=== PATIENT | male | born 1960 | race Caucasian/White ===

== ENCOUNTER 2016-09-04 14:17 | Emergency (ER) | payer OTHER ==
[~2016-09-04] VITALS: Wt 77.1 kg
[~2016-09-04 14:17] MED LIST: ADVAIR 250/501 EA INH; ALLOPURINOL100 MG; ASPIR LOW81 MG PO; ASPIRIN81 M2 PO; ATENOLOL25 MG; AUGMENTIN 875-875 MG PO; COREG3.125 MG; COREG6.25 MG PO; COZAAR25 M1 PO; COZAAR50 MG; DEXILANT60 M1 PO; FLOMAX0.4 MG PO; GLUCOPHAGE1000 MG; GLYBURIDE5 MG; HYDROCHLOROTH12.5 MG; JANUVIA25 MG PO; LOPID600 MG; MEVACOR20 MG; MORPHINE SULFAT15 M7 PO; MOTRIN800 MG PO; MS CONTIN15 MG PO; NASONEX0.05 MG/AC NS; NEURONTIN300 MG; NEXIUM40 MG; NITROSTAT; NORCO 5-325 TA1 EACH PO; OXYGEN; PERCOCET 325 MG1 TA2 PO; PLAVIX75 M1 PO; PLAVIX75 MG; PROAIR HFA0.09 MG/AC INH; REQUIP2 MG PO; SPIRIVA18 MCG INH; SPIRIVA18 MCG PO; THEO-DUR200 MG; TRAMADOL HCL50 MG PO; VENTOLIN 02.5 MG/3 M INH; VICODIN 5/500 505 MG
[2016-09-04 14:42] LABS: BASO % 0.3 % (0.0-1.0); EOS % 0.3 % (1.0-4.0); HEMATOCRIT 22.5 % (42.0-52.0); HEMOGLOBIN 7.3 g/dl (14.0-18.0); IG # 0.1 10*3/uL (0.0-0.1); LYMPH # 0.8 10*3/uL (1.3-4.4); LYMPH % 13.1 % (27.0-41.0); MEAN CORPUSCULAR HGB 29.2 pg (27.0-31.0); MEAN CORPUSCULAR HGB CONC 32.4 g/dl (33.0-37.0); MEAN PLATELET VOLUME 10.7 fl (9.6-12.3); MONO # 0.9 10*3/uL (0.1-1.0); MONO % 14.7 % (3.0-9.0); NEUT # 4.3 10*3/uL (2.3-7.9); NEUT % 70.8 % (47.0-73.0); PLATELET COUNT AUTOMATED 87 10*3/uL (130-400); RED CELL DISTRI WIDTH 14.6 % (0-14.5); WHITE BLOOD COUNT 6.1 10*3/uL (4.8-10.8)
[2016-09-04 14:50] LABS: PROTHROMBIN TIME 10.9 SECONDS (9.0-12.4)
[2016-09-04 14:55] LABS: BUN 13 mg/dl (7-24); CARBON DIOXIDE 24 mmol/L (21-32); CHLORIDE 99 mmol/L (98-107); EST GLOM FILT AFRICAN AMERICAN > 60 ml/min; GLUCOSE 227 mg/dL (65-99); SODIUM 135 mmol/L (136-145)
[2016-09-04 14:56] VITALS: BP 112/66
== END 2016-09-04 14:57 | disposition short-term general hospital (02) ==
LOC: ED 14:17
PROVIDERS: Student in an Organized Health Care Education/Training Program
DX: K91.841 Postprocedural hemorrhage of a digestive system organ or structure following other procedure (principal); J44.9 Chronic obstructive pulmonary disease, unspecified; I10 Essential (primary) hypertension; E78.00 Pure hypercholesterolemia, unspecified; I73.9 Peripheral vascular disease, unspecified; E11.65 Type 2 diabetes mellitus with hyperglycemia; Z79.899 Other long term (current) drug therapy; Z79.82 Long term (current) use of aspirin

== ENCOUNTER 2016-09-17 13:32 | Inpatient (IN) | payer OTHER ==
[~2016-09-17] VITALS: Ht 167.6 cm; Wt 81.0 kg
[2016-09-17] VITALS (13 sets, daily range): BP systolic 82–115; BP diastolic 40–62
--- NOTE | ~2016-09-17 | CON ---
[place], [place] REPORT OF CONSULTATION NAME: DEYSI GILLIS UNIT #: [id number] ROOM: [facility] DOCTOR: DENNISE OSRIA MD BIRTHDATE: [birth year] DOS: 09/18/2016 GASTROENDOSCOPIC CONSULTATION REPORT HISTORY OF PRESENT ILLNESS: The patient has presented with multiple medical issues among which has been blood in the stool, blood in ostomy site, leukocytosis of 12,000, H and H of 8 and 26 with platelet of 250. Comprehensive metabolic panel, electrolyte balanced, potassium 5.6 initially, alkaline phosphatase 467. CBC differential, drop in H and H to 7 and 24 identified. PAST MEDICAL HISTORY: COPD, history of colonic mass, bowel obstruction, colostomy, deep venous thrombosis, diabetes mellitus. PAST SURGICAL HISTORY: Colostomy, inferior vena cava filter, total toe amputation. SOCIAL HISTORY: Alcohol consumer. FAMILY HISTORY: Noncontributory. ALLERGIES: No known medications. MEDICATIONS: Medication list has been reviewed on aspirin and Plavix. REVIEW OF SYSTEMS: HEENT: Denies double vision, blurred vision. RESPIRATORY: Denies acute shortness of breath. CARDIOVASCULAR: Denies chest pain. DIGESTIVE SYSTEM: As identified above. No blood in the colostomy. PHYSICAL EXAMINATION: VITAL SIGNS: Stable. HEENT: Head normocephalic, nontraumatic. Mouth and buccal mucosa benign. NECK: Supple, no thyromegaly. CHEST: Symmetric anatomy, equal expansion. No wheeze, no rhonchi. HEART: Normal sinus rhythm, no gallop, no murmur. ABDOMEN: Soft. No hepato-organomegaly. Bowel sounds present. No pulsatile mass. EXTREMITIES: No cyanosis, no pedal edema. NEUROLOGIC: Alert, oriented to time, place, person. IMPRESSION: Gastrointestinal bleed, blood in colostomy on aspirin and Plavix. OTHER ADJUNCTIVE DIAGNOSES: As outlined in paragraph of past medical and surgical history. PLAN: We are going to consider EGD, colonoscopy and colostomy evaluation a colostomy. [place], [place] REPORT OF CONSULTATION NAME: DEYSI GILLIS UNIT #: [id number] ROOM: [facility] DOCTOR: DENNISE SORIA MD BIRTHDATE: [birth year] DENNISE SORIA MD CM:CONSTR:REPORT OF CONSULTATION 1407 09/19/16 0644 interface
--- NOTE | ~2016-09-17 | O ---
[place], [place] OPERATIVE NOTE NAME: DEYSI GILLIS UNIT #: [id number] ROOM: [facility] DOCTOR: ESTELLA ENCARNACION,DENNISE BIRTHDATE: [birth year] DOS: 09/18/2016 GASTROENDOSCOPIC REPORT PROCEDURE: Today's procedure part of investigation is ileoscopy. PREMEDICATION: Versed and Diprivan. SCOPE: Olympus folding ____ gastroscope Q10 video. REPORT: After putting the patient in the left lateral position. Scope was introduced into the ostomy in the right lower quadrant and advanced to approximately 80 cm. No acute pathology seen. No bleeding, ostomy appears to be viable. Patient extubated, tolerated procedure well. IMPRESSION: Normal ileoscopy. PLAN AND DISCUSSION: We are going to withhold aspirin and Plavix for 3 more days. We are going to transfuse for H and H of about 10 and 30 and we are going to address esophageal moniliasis with Diflucan therapy. Thank you very much indeed. DENNISE SORIA MD CM:OPRECORD:OPERATIVE NOTE 1433 1647 DENNISE SORIA MD 09/18/16 1648 interface
--- NOTE | ~2016-09-17 | O ---
[place], [place] OPERATIVE NOTE NAME: DEYSI GILLIS UNIT #: [id number] ROOM: [facility] DOCTOR: ESTELLA ENCARNACION,DENNISE BIRTHDATE: [birth year] DOS: 09/18/2016 The patient has presented with chief complaint of GI bleed, drop in H and H, undergoing investigation. INDICATIONS: The patient has been on aspirin and Plavix. PROCEDURE: Today's procedure part of investigation is panendoscopy plus ileoscopy. Plus brush for fungal study of the esophagus. PREMEDICATION: Versed and Diprivan. SCOPE: Olympus forward-viewing gastroscope Q10 video. REPORT: After putting the patient in the left lateral position and after application of lubricant to the scope, the scope was introduced; thereafter, under direct visualization, advanced through the length of esophagus without difficulty. Severe esophageal moniliasis was identified. Padroni for fungal study obtained. Gastric pouch was entered. Gastritis was seen. Antral biopsy obtained. Duodenal bulb, second and third part within normal limits. The patient extubated, tolerated the procedure well. IMPRESSION: Severe esophageal moniliasis, gastritis, status post biopsy. PLAN AND DISCUSSION: We are going to treat this patient with Diflucan 100 mg every day. On the other hand we are going to proceed with ileoscopy. DENNISE SORIA MD CM:OPRECORD:OPERATIVE NOTE 1433 1645 DENNISE SORIA MD 09/18/16 1646 interface
--- NOTE | ~2016-09-17 | CON ---
[place], [place] REPORT OF CONSULTATION NAME: DEYSI GILLIS UNIT #: [id number] ROOM: [facility] DOCTOR: ANDREA WHEELER MD BIRTHDATE: [birth year] DOS: 09/18/2016 REPORT TO THE APPLICATIONS TESTER HISTORY OF PRESENT ILLNESS: The patient is a pleasant 56-year-old [place] gentleman with a history of metastatic colon cancer as well as a ____ complaining of ____ to the ileostomy bag. He went to his PCP's office when he noticed and was seen by him, asked to come to the Emergency Department. He had this episode a couple of days back, which went away and he noticed again one hour ago and thus admitted to the ER through the ER into the hospital. Denies any shortness of breath, fever, chills, etc. He was recently shifted to [facility] on 09/04/2016 because of vascular hemorrhage from the varicose vein that was repaired. PAST MEDICAL HISTORY: Significant for metastatic colon cancer, undergoing chemotherapy, history of abdominal wall dehiscence, resolved acute intestinal obstruction. ____ sigmoid colon with metastatic disease to the liver. History of bleeding from varicose veins status post suturing, COPD, essential hypertension, gout, hematuria, which resolved, history of DVTs, pulmonary embolisms, hypercholesterolemia, leukocytosis, pneumonia due to H influenza, history of peripheral vascular disease. PAST SURGICAL HISTORY: Inferior vena cava filter placement, history of toe surgery, total toe amputation, history of colostomy. SOCIAL HISTORY: Denies any alcohol or drug abuse. FAMILY HISTORY: Father age ____ cancer. Mother age 77 of lung cancer. ALLERGIES: No allergies. MEDICATIONS: Albuterol, allopurinol, aspirin, carvedilol, Plavix, ferrous sulfate, Advair, gabapentin, gemfibrozil, ____, potassium, lovastatin, Protonix, Requip, Januvia, Spiriva, Ultram. REVIEW OF SYSTEMS: CONSTITUTIONAL: No chills. No fatigue. No fever. No loss of appetite. No night sweats. No weakness. No weight loss. HEENT: No trouble swallowing. No loss of smell. No loss of hearing. No double vision. No pain. No discharge. ENT AND RESPIRATORY: No wheeze. No sore throat. No change in voice. No hearing loss. No nose bleed. No cough. No trouble breathing through nose. No shortness of breath. No coughing up blood. No epistaxis. CARDIOVASCULAR: No chest pain. No dizziness. No irregular heartbeat. No leg edema. No pain in legs while walking. No palpitations. No shortness of breath. DERMATOLOGIC: No acne. No hives. No laceration. No mole. No rash. ENDOCRINE: No cold intolerance. No diabetes. No fatigue. No hot flashes. No polydipsia. No polyuria. No urinating frequently. No weight loss. [place], [place] REPORT OF CONSULTATION NAME: DEYSI GILLIS UNIT #: [id number] ROOM: [facility] DOCTOR: ANDREA WHEELER MD BIRTHDATE: [birth year] HEMATOLOGIC AND LYMPH: No fatigue. No easy bruising. GASTROENTEROLOGIC: No change in bowel habits. No indigestion. No frequent bloating. No vomiting blood. No abdominal cramping. No nausea. No heartburn. No vomiting. No abdominal pain. No dysphagia. No diarrhea. No constipation. No blood in stool. Has been having ____ bleeding through the stoma. MALE REPRODUCTIVE: No testicular pain. No difficulty with erection. No diminished sexual drive. No penile discharge. MUSCULOSKELETAL: No back pain. No muscle pain or weakness. No neck pain. No tingling/numbness. No swelling/bruising. No osteoporosis treatment. OPHTHALMOLOGIC: No double vision. No diminished vision. No loss of vision. UROLOGIC: No dysuria. No frequent nighttime urination. No pain with urination. No difficulty urinating. No blood in urine. No frequent urination. No urinary incontinence. NEUROLOGIC: No loss of sensation in specific body area. No vertigo. No burning pain in feet. No trouble with balance. No trouble with coordination. No loss of consciousness. No loss of feeling/power. No confusion. No headache. No tingling/numbness. PSYCHOLOGIC: No tinnitus. No headaches. No shortness of breath. No weight decrease. No nausea. No vomiting. No abdominal discomfort. No constipation. No diarrhea. No depression. No anxiety. PHYSICAL EXAMINATION: GENERAL: Pleasant gentleman in no apparent distress, ____ stable, afebrile. HEENT: Oral mucosa appears intact. The external ears are normal in appearance. Nares are patent without lesions, exudates, erythema, or inflammation. Tongue is symmetrical. Uvula is midline. NECK AND THYROID: Neck supple without palpable masses. Trachea is midline. No thyromegaly. No carotid bruit or JVD. BREASTS: Normal. Nipples unremarkable. No drainage. No lumps felt on either side. HEART: Normal S1, S2, without significant murmur, rub, or gallop. LUNGS: Clear to auscultation and percussion with good air entry bilaterally. The patient is breathing easily without the use of accessory muscles. Diaphragmatic excursions are intact. ABDOMEN: No costovertebral angle tenderness. Soft. No organomegaly or masses. Nontender. No hernias present. Liver and spleen are not palpable. ____ black stools. LYMPHATIC: No adenopathy noted in the cervical, supraclavicular, axillary, or inguinal regions. NEUROLOGIC: Nonfocal. Oriented to person, place, and time. MENTAL STATUS: Appropriate for mood and affect. PERIPHERAL PULSES: No varicosities. Femoral and pedal pulses are palpable. EXTREMITIES: Without cyanosis, clubbing, or edema. No gross anomalies. LABORATORY DATA: White count of 10.4, hemoglobin 8.8, hematocrit 26.6, platelet count of 132,000. ASSESSMENT: 1. Bleeding from the ileostomy bag. 2. Anemia of neoplastic disorder. [place], [place] REPORT OF CONSULTATION NAME: DEYSI GILLIS UNIT #: [id number] ROOM: [facility] DOCTOR: ANDREA WHEELER MD BIRTHDATE: [birth year] 3. Metastatic colon cancer. PLAN: The patient's bleeding has decreased and Dr. Hall is going to do a colonoscopy depending on further intervention. In the meantime, he got 2 units of packed RBC. We will keep a close watch at this time. I had a detailed discussion with the patient ____ seemed to understand. Ample time was given to the patient to ask me questions. We will follow. Chemo on hold. Thanks for consulting and letting us participate in the care of this interesting patient. ANDREA WHEELER MD CM:CONSTR:REPORT OF CONSULTATION 0828 09/19/16 0206 interface
[2016-09-17 14:30] LABS: BASO % 0.1 % (0.0-1.0); EOS % 0.1 % (1.0-4.0); HEMOGLOBIN 7.6 g/dl (14.0-18.0); IG # 0.1 10*3/uL (0.0-0.1); LYMPH # 1.8 10*3/uL (1.3-4.4); LYMPH % 13.3 % (27.0-41.0); MEAN CELL VOLUME 90.2 fl (80.0-94.0); MEAN CORPUSCULAR HGB 28.6 pg (27.0-31.0); MEAN CORPUSCULAR HGB CONC 31.7 g/dl (33.0-37.0); MEAN PLATELET VOLUME 11.3 fl (9.6-12.3); MONO # 0.3 10*3/uL (0.1-1.0); MONO % 2.4 % (3.0-9.0); NEUT # 11.4 10*3/uL (2.3-7.9); NEUT % 83.7 % (47.0-73.0); PLATELET COUNT AUTOMATED 207 10*3/uL (130-400); RED BLOOD COUNT 2.66 10*6/uL (4.50-5.90); RED CELL DISTRI WIDTH 15.1 % (0-14.5); WHITE BLOOD COUNT 13.6 10*3/uL (4.8-10.8)
[2016-09-17 14:47] LABS: ALBUMIN 2.4 gm/dl (3.1-4.5); BILIRUBIN, TOTAL 0.5 mg/dl (0.2-1.0); BUN 24 mg/dl (7-24); CARBON DIOXIDE 26 mmol/L (21-32); CHLORIDE 102 mmol/L (98-107); EST GLOM FILT AFRICAN AMERICAN > 60 ml/min; GLUCOSE 404 mg/dL (65-99); SGOT/AST 27 IU/L (3-35); SGPT/ALT 31 U/L (12-78); SODIUM 132 mmol/L (136-145); TOTAL PROTEIN 7.3 gm/dL (6.4-8.2)
[2016-09-17 14:49] LABS: ALKALINE PHOSPHATASE 363 U/L (45-117)
[2016-09-17 14:52] LABS: POTASSIUM 6.3 mmol/L (3.5-5.1); TROPONIN I 0.084 ng/ml (<0.045)
[2016-09-17] MEDS ORDERED: COREG3.125 MG PO (19:43)
[2016-09-17] MEDS ORDERED: CENTRUM SILVER1 EAC4 PO (19:45)
[2016-09-17] MEDS ORDERED: TAMSULOSIN HCL0.4 MG PO (19:48)
[2016-09-17] MEDS ORDERED: NEURONTIN300 MG PO (19:49)
[2016-09-17] MEDS ORDERED: IRON325 M2 PO (19:51)
[2016-09-17] MEDS ORDERED: ULTRAM50 MG PO (20:05)
[2016-09-17] MEDS ORDERED: Amaryl2 MG PO (20:07)
[2016-09-17] MEDS ORDERED: PROTONIX40 MG PO (20:08)
[2016-09-18] VITALS (9 sets, daily range): BP systolic 92–125; BP diastolic 31–67
[2016-09-18 01:49] LABS: BASO % 0.1 % (0.0-1.0); EOS % 0.2 % (1.0-4.0); HEMATOCRIT 26.2 % (42.0-52.0); HEMOGLOBIN 8.6 g/dl (14.0-18.0); LYMPH % 19.4 % (27.0-41.0); MEAN CELL VOLUME 87.3 fl (80.0-94.0); MEAN CORPUSCULAR HGB 28.7 pg (27.0-31.0); MEAN CORPUSCULAR HGB CONC 32.8 g/dl (33.0-37.0); MEAN PLATELET VOLUME 11.4 fl (9.6-12.3); MONO # 0.3 10*3/uL (0.1-1.0); MONO % 2.5 % (3.0-9.0); NEUT % 77.5 % (47.0-73.0); PLATELET COUNT AUTOMATED 146 10*3/uL (130-400); RED CELL DISTRI WIDTH 15.2 % (0-14.5); WHITE BLOOD COUNT 10.4 10*3/uL (4.8-10.8)
[2016-09-18 02:02] LABS: BUN 22 mg/dl (7-24); CARBON DIOXIDE 26 mmol/L (21-32); CHLORIDE 107 mmol/L (98-107); EST GLOM FILT AFRICAN AMERICAN > 60 ml/min; GLUCOSE 157 mg/dL (65-99); SODIUM 141 mmol/L (136-145)
[2016-09-18 02:04] LABS: POTASSIUM 4.9 mmol/L (3.5-5.1)
[2016-09-18 02:06] LABS: CKMB 0.6 ng/ml (0.5-3.6)
[2016-09-18 02:07] LABS: TROPONIN I 0.058 ng/ml (<0.045)
[2016-09-18 06:24] LABS: BASO % 0.1 % (0.0-1.0); EOS % 0.2 % (1.0-4.0); HEMATOCRIT 26.6 % (42.0-52.0); HEMOGLOBIN 8.8 g/dl (14.0-18.0); IG # 0.1 10*3/uL (0.0-0.1); LYMPH # 2.1 10*3/uL (1.3-4.4); LYMPH % 20.1 % (27.0-41.0); MEAN CELL VOLUME 87.8 fl (80.0-94.0); MEAN CORPUSCULAR HGB CONC 33.1 g/dl (33.0-37.0); MEAN PLATELET VOLUME 10.8 fl (9.6-12.3); MONO # 0.3 10*3/uL (0.1-1.0); MONO % 2.9 % (3.0-9.0); NEUT # 7.9 10*3/uL (2.3-7.9); NEUT % 76.1 % (47.0-73.0); PLATELET COUNT AUTOMATED 132 10*3/uL (130-400); RED BLOOD COUNT 3.03 10*6/uL (4.50-5.90); RED CELL DISTRI WIDTH 15.3 % (0-14.5); WHITE BLOOD COUNT 10.4 10*3/uL (4.8-10.8)
[2016-09-18 06:40] LABS: CPK 64 U/L (39-308)
[2016-09-18 06:42] LABS: CKMB < 0.5 ng/ml (0.5-3.6)
[2016-09-18 06:43] LABS: TROPONIN I 0.048 ng/ml (<0.045)
[2016-09-18 06:44] LABS: HEMOGLOBIN A1c 7.4 % (4.8-5.6)
[2016-09-18 06:57] LABS: BUN 20 mg/dl (7-24); CARBON DIOXIDE 26 mmol/L (21-32); CHLORIDE 107 mmol/L (98-107); GLUCOSE 168 mg/dL (65-99); MAGNESIUM 1.3 mg/dL (1.5-2.1); POTASSIUM 5.3 mmol/L (3.5-5.1); SODIUM 138 mmol/L (136-145)
[2016-09-18 07:02] LABS: PROTHROMBIN TIME 10.6 SECONDS (9.0-12.4)
[2016-09-18 07:08] LABS: ALKALINE PHOSPHATASE 282 U/L (45-117); BILIRUBIN, TOTAL 0.6 mg/dl (0.2-1.0); CHOLESTEROL 120 mg/dL (<200); EST GLOM FILT AFRICAN AMERICAN > 60 ml/min; FREE T4 0.99 ng/dl (0.76-1.46); HDL CHOLESTEROL 41 mg/dl (40-60); LDL CHOLESTEROL 54 mg/dL (9-159); PHOSPHOROUS 2.6 mg/dL (2.5-4.9); SGOT/AST 17 IU/L (3-35); SGPT/ALT 22 U/L (12-78); TRIGLYCERIDES 127 mg/dl (<150); VLDL CHOLESTEROL 25 mg/dL (6-40)
[2016-09-18 07:18] LABS: VITAMIN D, 25-HYDROXY 26.7 ng/mL (30-100)
[2016-09-18 07:26] LABS: FOLIC ACID > 24.00 ng/mL (>5.38)
[2016-09-18 11:55] LABS: CPK 61 U/L (39-308); TROPONIN I 0.039 ng/ml (<0.045)
[2016-09-18 11:59] LABS: CKMB < 0.5 ng/ml (0.5-3.6)
[2016-09-19] VITALS (12 sets, daily range): BP systolic 96–138; BP diastolic 49–88
[2016-09-19 05:56] LABS: EOS # 0.1 10*3/uL (0.0-0.4); EOS % 0.9 % (1.0-4.0); HEMATOCRIT 24.5 % (42.0-52.0); HEMOGLOBIN 7.7 g/dl (14.0-18.0); IG # 0.1 10*3/uL (0.0-0.1); LYMPH # 1.5 10*3/uL (1.3-4.4); LYMPH % 17.4 % (27.0-41.0); MEAN CELL VOLUME 90.4 fl (80.0-94.0); MEAN CORPUSCULAR HGB 28.4 pg (27.0-31.0); MEAN CORPUSCULAR HGB CONC 31.4 g/dl (33.0-37.0); MEAN PLATELET VOLUME 11.7 fl (9.6-12.3); MONO # 0.4 10*3/uL (0.1-1.0); MONO % 4.5 % (3.0-9.0); NEUT # 6.7 10*3/uL (2.3-7.9); NEUT % 76.6 % (47.0-73.0); PLATELET COUNT AUTOMATED 107 10*3/uL (130-400); RED BLOOD COUNT 2.71 10*6/uL (4.50-5.90); RED CELL DISTRI WIDTH 15.2 % (0-14.5); WHITE BLOOD COUNT 8.7 10*3/uL (4.8-10.8)
[2016-09-19 06:02] LABS: BUN 17 mg/dl (7-24); CARBON DIOXIDE 27 mmol/L (21-32); CHLORIDE 106 mmol/L (98-107); EST GLOM FILT AFRICAN AMERICAN > 60 ml/min; GLUCOSE 328 mg/dL (65-99); SODIUM 142 mmol/L (136-145)
[2016-09-19 06:32] LABS: POTASSIUM 4.3 mmol/L (3.5-5.1)
[2016-09-20] VITALS: BP 105/50
[2016-09-20 07:05] LABS: HEMATOCRIT 26.4 % (42.0-52.0); HEMOGLOBIN 8.7 g/dl (14.0-18.0)
[2016-09-20 07:33] LABS: CARBON DIOXIDE 24 mmol/L (21-32); CHLORIDE 109 mmol/L (98-107); EST GLOM FILT AFRICAN AMERICAN > 60 ml/min; GLUCOSE 197 mg/dL (65-99); POTASSIUM 4.2 mmol/L (3.5-5.1); SODIUM 141 mmol/L (136-145)
[2016-09-20 07:35] LABS: BUN 7 mg/dl (7-24)
[2016-09-20 08:00] VITALS: BP 123/68
[2016-09-20 12:00] VITALS: BP 112/57
[2016-09-20] MEDS ORDERED: FLUCONAZOLE100 MG PO (12:55)
[2016-09-20] MEDS ORDERED: BACTRIM 400 MG-1 TAB PO (13:09)
== END 2016-09-20 13:58 | disposition home or self-care (01) | DRG 377 ==
LOC: ED 13:32 → ICCU 15:27 → EDHOLD 15:27 → 5E 16:01 → ICCU 18:28 → 4E 09-19 17:44
PROVIDERS: Emergency Medicine; Family Medicine; Internal Medicine; Internal Medicine Gastroenterology
PROC: 30233N1 Transfusion of Nonautologous Red Blood Cells into Peripheral Vein, Percutaneous Approach (ICD-10-PCS; principal; 2016-09-17)
PROC: 0DJD8ZZ Inspection of Lower Intestinal Tract, Via Natural or Artificial Opening Endoscopic (ICD-10-PCS; 2016-09-18)
PROC: 0DB78ZX Excision of Stomach, Pylorus, Via Natural or Artificial Opening Endoscopic, Diagnostic (ICD-10-PCS; 2016-09-18)
DX: K92.2 Gastrointestinal hemorrhage, unspecified (principal); J96.00 Acute respiratory failure, unspecified whether with hypoxia or hypercapnia; E43 Unspecified severe protein-calorie malnutrition; B37.81 Candidal esophagitis; Z93.0 Tracheostomy status; C18.9 Malignant neoplasm of colon, unspecified; R65.10 Systemic inflammatory response syndrome (SIRS) of non-infectious origin without acute organ dysfunction; K94.11 Enterostomy hemorrhage; K29.71 Gastritis, unspecified, with bleeding; D69.6 Thrombocytopenia, unspecified; E11.65 Type 2 diabetes mellitus with hyperglycemia; E87.5 Hyperkalemia; J44.9 Chronic obstructive pulmonary disease, unspecified; D63.0 Anemia in neoplastic disease; I10 Essential (primary) hypertension; M1A.9XX0 Chronic gout, unspecified, without tophus (tophi); E78.00 Pure hypercholesterolemia, unspecified; E83.41 Hypermagnesemia; E55.9 Vitamin D deficiency, unspecified; F17.200 Nicotine dependence, unspecified, uncomplicated; E11.51 Type 2 diabetes mellitus with diabetic peripheral angiopathy without gangrene; Z80.8 Family history of malignant neoplasm of other organs or systems; Z80.1 Family history of malignant neoplasm of trachea, bronchus and lung; Z86.718 Personal history of other venous thrombosis and embolism; Z79.51 Long term (current) use of inhaled steroids; Z79.82 Long term (current) use of aspirin; Z79.899 Other long term (current) drug therapy; Z68.28 Body mass index [BMI] 28.0-28.9, adult; I95.9 Hypotension, unspecified

== ENCOUNTER 2016-10-02 13:16 | Emergency (ER) | payer OTHER ==
[~2016-10-02] VITALS: Wt 72.6 kg
--- NOTE | ~2016-10-02 | EKG ---
[place], [place] ELECTROCARDIOGRAM REPORT NAME: DEYSI GILILS UNIT #: [id number] ROOM: DOCTOR: JAVAN GUERRERO MD BIRTHDATE: [birth year] DOS: 10/02/2016 TIME: 1411 HOURS. Normal sinus rhythm at 93 beats per minute. A short AL interval. Low voltage T-waves in lateral leads. No previous tracing is available for comparison. JAVAN GUERRERO MD CM:EKGRPT:ELECTROCARDIOGRAM REPORT 1453 1651 JAVAN GURERERO MD
[~2016-10-02 13:16] MED LIST changes: +Amaryl2 MG PO; +BACTRIM 400 MG-1 TAB PO; +CENTRUM SILVER1 EAC4 PO; +COREG3.125 MG PO; +FLUCONAZOLE100 MG PO; +IRON325 M2 PO; +NEURONTIN300 MG PO; +PROTONIX40 MG PO; +TAMSULOSIN HCL0.4 MG PO; +ULTRAM50 MG PO
[2016-10-02 13:27] VITALS: BP 114/61
[2016-10-02 14:20] LABS: BASO % 0.2 % (0.0-1.0); EOS # 0.1 10*3/uL (0.0-0.4); EOS % 1.7 % (1.0-4.0); HEMOGLOBIN 8.7 g/dl (14.0-18.0); LYMPH # 1.2 10*3/uL (1.3-4.4); LYMPH % 24.8 % (27.0-41.0); MEAN CELL VOLUME 86.3 fl (80.0-94.0); MEAN CORPUSCULAR HGB 27.8 pg (27.0-31.0); MEAN CORPUSCULAR HGB CONC 32.2 g/dl (33.0-37.0); MEAN PLATELET VOLUME 11.9 fl (9.6-12.3); MONO # 0.5 10*3/uL (0.1-1.0); MONO % 10.4 % (3.0-9.0); NEUT # 2.9 10*3/uL (2.3-7.9); NEUT % 62.3 % (47.0-73.0); PLATELET COUNT AUTOMATED 118 10*3/uL (130-400); RED BLOOD COUNT 3.13 10*6/uL (4.50-5.90); RED CELL DISTRI WIDTH 17.5 % (0-14.5); WHITE BLOOD COUNT 4.7 10*3/uL (4.8-10.8)
[2016-10-02 14:31] LABS: PROTHROMBIN TIME 10.1 SECONDS (9.0-12.4)
[2016-10-02 14:35] LABS: ALBUMIN 2.1 gm/dl (3.1-4.5); ALKALINE PHOSPHATASE 407 U/L (45-117); BILIRUBIN, TOTAL 0.7 mg/dl (0.2-1.0); BUN 19 mg/dl (7-24); CARBON DIOXIDE 27 mmol/L (21-32); CHLORIDE 99 mmol/L (98-107); CPK 165 U/L (39-308); EST GLOM FILT AFRICAN AMERICAN > 60 ml/min; GLUCOSE 349 mg/dL (65-99); MAGNESIUM 1.8 mg/dL (1.5-2.1); POTASSIUM 4.4 mmol/L (3.5-5.1); SGOT/AST 23 IU/L (3-35); SGPT/ALT 26 U/L (12-78); SODIUM 134 mmol/L (136-145); TOTAL PROTEIN 6.6 gm/dL (6.4-8.2)
[2016-10-02 14:44] LABS: CKMB < 0.5 ng/ml (0.5-3.6); TROPONIN I < 0.015 ng/ml (<0.045)
== END 2016-10-02 14:56 | disposition left against medical advice (07) ==
LOC: ED 13:16
PROVIDERS: Emergency Medicine
DX: K92.2 Gastrointestinal hemorrhage, unspecified (principal); F17.200 Nicotine dependence, unspecified, uncomplicated; Z79.82 Long term (current) use of aspirin; Z79.899 Other long term (current) drug therapy; I10 Essential (primary) hypertension; J44.9 Chronic obstructive pulmonary disease, unspecified; E78.00 Pure hypercholesterolemia, unspecified; Z79.01 Long term (current) use of anticoagulants; Z93.3 Colostomy status

== ENCOUNTER 2017-03-10 09:20 | Inpatient (IN) | payer OTHER ==
[2017-03-10] VITALS (8 sets, daily range): BP systolic 85–115; BP diastolic 36–60
[~2017-03-10] VITALS: Ht 167.6 cm; Wt 61.2 kg
--- NOTE | ~2017-03-10 | CON ---
[place], [place] REPORT OF CONSULTATION NAME: [facility]YSI GILLIS [id number] UNIT #: [id number] ROOM: 506 DOCTOR: ANDREA WHEELER MD BIRTHDATE: [birth year] DOS: 03/11/2017 HISTORY OF PRESENT ILLNESS: The patient is a pleasant 56-year-old gentleman with a history of metastatic colon cancer diagnosed about 18 months ago, has been pretty well as far as his stage IV cancer is concerned. He finished his chemotherapy on Wednesday. He presented to the Emergency Department since he had not been feeling good and has had frequent falls associated with some nausea and vomiting. He was brought in by private vehicle by his . He was found to be hypotensive as well as had been feeling dizzy and falling over multiple times and consulted for further evaluation of metastatic disease. He also was noted to have pneumonia. PAST MEDICAL HISTORY: Significant for metastatic stage IV colon cancer, diagnosed about 18 months ago; history of acute intestinal obstruction, underwent surgery; acute respiratory failure; COPD; esophageal moniliasis; essential hypertension; history of DV thrombosis; pulmonary embolism; hypercholesterolemia; hypercalcemia; hyperkalemia; hypomagnesemia; peripheral vascular disease. SOCIAL HISTORY: Smokes half packet per day for 40 years. Denies any drinking. PAST SURGICAL HISTORY: Colostomy, history of toe surgery with prominent toe amputation, history of tracheostomy, peripheral vascular angioplasty as well as history of inferior vena filter placement. FAMILY HISTORY: Father at 76 with throat cancer. Mother at 77 of lung cancer. ALLERGIES: No allergies. MEDICATIONS: Albuterol, allopurinol, aspirin, baclofen, carvedilol, Celebrex, Plavix, ____, Advair, Lasix, Neurontin, Lopid, Amaryl, levothyroxine, Cozaar, Mevacor, metformin, metoclopramide, Mucinex, Centrum Silver, Procardia, Zofran, Protonix, Zantac, Requip, Januvia, Aubagio, Spiriva, Ultram, Effexor. RADIOLOGY: CT of the head without contrast showed no evidence of acute territorial infarction, acute intracranial hemorrhage. There is a focal hypodensity in the left posterior occipital parietal region extending into the cortex, possibly representing a focal cortical infarct, but given the history of malignancy, metastatic focus cannot be excluded, correlate clinically with enhanced MRI. CT of the cervical spine showed no acute cervical spine fracture, minimal degenerative disease. CT scan of the abdomen and pelvis showed no acute findings except for the liver mets. REVIEW OF SYSTEMS CONSTITUTIONAL: No chills. No fatigue. No fever. No loss of appetite. No night sweats. No weakness. No weight loss. HEENT: No trouble swallowing. No loss of smell. No loss of hearing. No double vision. No pain. No discharge. ENT AND RESPIRATORY: No wheeze. No sore throat. No change in voice. No [place], [place] REPORT OF CONSULTATION NAME: DEYSI GILLIS UNIT #: [id number] ROOM: 506 DOCTOR: ANDREA WHEELER MD BIRTHDATE: 56 hearing loss. No nose bleed. No cough. No trouble breathing through nose. No shortness of breath. No coughing up blood. No epistaxis. CARDIOVASCULAR: No chest pain. No dizziness. No irregular heartbeat. No leg edema. No pain in legs while walking. No palpitations. No shortness of breath. DERMATOLOGIC: No acne. No hives. No laceration. No mole. No rash. ENDOCRINE: No cold intolerance. No diabetes. No fatigue. No hot flashes. No polydipsia. No polyuria. No urinating frequently. No weight loss. HEMATOLOGIC AND LYMPH: No fatigue. No easy bruising. GASTROENTEROLOGIC: No change in bowel habits. No indigestion. No frequent bloating. No vomiting blood. No abdominal cramping. No nausea. No heartburn. No vomiting. No abdominal pain. No dysphagia. No diarrhea. No constipation. No blood in stool. MALE REPRODUCTIVE: No testicular pain. No difficulty with erection. No diminished sexual drive. No penile discharge. MUSCULOSKELETAL: No back pain. No muscle pain or weakness. No neck pain. No tingling/numbness. No swelling/bruising. No osteoporosis treatment. OPHTHALMOLOGIC: No double vision. No diminished vision. No loss of vision. UROLOGIC: No dysuria. No frequent nighttime urination. No pain with urination. No difficulty urinating. No blood in urine. No frequent urination. No urinary incontinence. NEUROLOGIC: No loss of sensation in specific body area. No vertigo. No burning pain in feet. No trouble with balance. No trouble with coordination. No loss of consciousness. No loss of feeling/power. No confusion. No headache. No tingling/numbness. PSYCHOLOGIC: No tinnitus. No headaches. No shortness of breath. No weight decrease. No nausea. No vomiting. No abdominal discomfort. No constipation. No diarrhea. No depression. No anxiety. PHYSICAL EXAMINATION: GENERAL: General appearance: Pleasant patient, no apparent distress. VITAL SIGNS: Stable, afebrile. HEENT: Oral mucosa appears intact. The external ears are normal in appearance. Nares are patent without lesions, exudates, erythema, or inflammation. Tongue is symmetrical. Uvula is midline. NECK AND THYROID: Neck supple without palpable masses. Trachea is midline. No thyromegaly. No carotid bruit or JVD. BREASTS: Normal. Nipples unremarkable. No drainage. No lumps felt on either side. HEART: Normal S1, S2, without significant murmur, rub, or gallop. LUNGS: Clear to auscultation and percussion with good air entry bilaterally. The patient is breathing easily without the use of accessory muscles. Diaphragmatic excursions are intact. ABDOMEN: Colostomy in place, wound healed. LYMPHATIC: No adenopathy noted in the cervical, supraclavicular, axillary, or inguinal regions. NEUROLOGIC: Nonfocal. Oriented to person, place, and time. MENTAL STATUS: Appropriate for mood and affect. PERIPHERAL PULSES: No varicosities. Femoral and pedal pulses are palpable. EXTREMITIES: Without cyanosis, clubbing, or edema. No gross anomalies. [place], [place] REPORT OF CONSULTATION NAME: DEYSI GILLIS UNIT #: [id number] ROOM: [facility] DOCTOR: ANDREA WHEELER MD BIRTHDATE: [birth year] LABORATORY DATA: Sodium 130, potassium 5.2, chloride 92, bicarbonate 27, BUN of 30, EGFR is more than 60. White count of 6.2, hemoglobin 10.2, hematocrit 31.6, platelet count of 236. Chest x-ray showed minimal patchy interstitial infiltrate, right middle lobe. Questionable early evolving pneumonia. ASSESSMENT: 1. Possible pneumonia. 2. Metastatic stage IV colon cancer, undergoing chemotherapy. 3. Anemia of neoplastic disorder syncope. 4. Syncope. 5. Questionable lesion in the left posterior occipital parietal region extending into the cortex, probably representing focal cortical infarct. Metastatic focus is not definitely excluded. PLAN: I had detailed discussion with the patient. We will continue broad spectrum antibiotics. We will wait for the blood cultures to come back. He may need an MRI of the head if his dizziness does not improve. Follow for now. Review old records. Depending on the above, further intervention and discussion will follow. Thanks for consulting and letting me participate in the care of this interesting patient. ANDREA WHEELER MD CM:CONSTR:REPORT OF CONSULTATION 0907 03/11/17 2030 interface
[2017-03-10 10:02] LABS: BASO % 0.5 % (0.0-1.0); HEMATOCRIT 31.6 % (42.0-52.0); HEMOGLOBIN 10.2 g/dl (14.0-18.0); LYMPH # 1.5 10*3/uL (1.3-4.4); LYMPH % 23.3 % (27.0-41.0); MEAN CORPUSCULAR HGB 28.4 pg (27.0-31.0); MEAN CORPUSCULAR HGB CONC 32.3 g/dl (33.0-37.0); MEAN PLATELET VOLUME 11.8 fl (9.6-12.3); MONO # 0.3 10*3/uL (0.1-1.0); MONO % 4.2 % (3.0-9.0); NEUT # 4.5 10*3/uL (2.3-7.9); NEUT % 71.5 % (47.0-73.0); PLATELET COUNT AUTOMATED 236 10*3/uL (130-400); RED BLOOD COUNT 3.59 10*6/uL (4.50-5.90); RED CELL DISTRI WIDTH 15.9 % (0-14.5); WHITE BLOOD COUNT 6.2 10*3/uL (4.8-10.8)
[2017-03-10 10:11] LABS: ACT PARTIAL THROMBO TIME 30.9 SECONDS (20.8-31.5); INTERNATIONAL NORM RATIO 1.2 (2.0-3.5)
[2017-03-10 10:20] LABS: ALBUMIN 2.2 gm/dl (3.1-4.5); ALKALINE PHOSPHATASE 480 U/L (45-117); CHLORIDE 92 mmol/L (98-107); CREATININE 1.09 mg/dL (0.70-1.30); LIPASE 114 U/L (73-393); POTASSIUM 5.2 mmol/L (3.5-5.1); SGOT/AST 59 IU/L (3-35); SGPT/ALT 36 U/L (12-78); SODIUM 130 mmol/L (136-145); TOTAL PROTEIN 8.3 gm/dL (6.4-8.2)
[2017-03-10 10:22] LABS: BUN 30 mg/dl (7-24); TROPONIN I < 0.015 ng/ml (<0.045)
[2017-03-10 10:49] LABS: BILIRUBIN NEGATIVE (NEGATIVE); BLOOD NEGATIVE (NEGATIVE); CLARITY CLEAR (CLEAR); COLOR YELLOW (YELLOW); GLUCOSE NEGATIVE (NEGATIVE); KETONE NEGATIVE (NEGATIVE); LEUKO ESTERASE NEGATIVE (NEGATIVE); NITRITE NEGATIVE (NEGATIVE); PH 5.5 (5.0-9.0); UROBILINOGEN 0.2 E.U./dl (0.2-1.0)
--- NOTE | 2017-03-10 11:00 | NUR ---
REPORT RECEIVED FROM TONY YE. PT IS AWAKE AND ALERT. HIS COLOR IS SALLOW.SKIN W/D. RESPIRATIONS APPEAR NON-LABORED. IV FLUID IS INFUSING VIA MEDIPORT RIGHT CHEST. SITE APPEARS ASYMPTOMATIC. NO CO DISCOMFORT AT THIS TIME. MELIZA RN
[2017-03-10 11:03] LABS: BACTERIA TRACE
--- NOTE | 2017-03-10 13:00 | NUR ---
A 56, admitted to , under the services of SHEN Chen DO with a diagnosis of SYNCOPE,PNEUMONIA,DEHYDRATION. Chief complaint is LOW BP AT HOME PER VN'S. Patient arrived via bed from ER. Monitor applied. Initial assessment completed. Vital signs taken and recorded. SHEN CHEN DO notified of admission to the unit. Orders received. See assessment for past medical history, medications and allergies. Patient and/or family oriented to unit. [facility] visitation policy reviewed. Clothing/patient valuable form completed. YUE MINOR R
[2017-03-10] MEDS ORDERED: METOCLOPRAMIDE10 MG PO (13:49)
[2017-03-10] MEDS ORDERED: ZOFRAN8 M1 PO (13:51)
[2017-03-10] MEDS ORDERED: PROTONIX40 MG PO (13:51)
[2017-03-10] MEDS ORDERED: METFORMIN500 MG PO (13:53)
[2017-03-10] MEDS ORDERED: ZANTAC 150150 MG PO (13:56)
[2017-03-10] MEDS ORDERED: LASIX20 MG PO (13:56)
[2017-03-10] MEDS ORDERED: LEVOTHYROXINE75 MCG PO (13:57)
--- NOTE | 2017-03-10 14:00 | NUR ---
DRY CLEAN DRESSING APPLIED TO LLQ WOUND-OLD COLOSTOMY SITE. NEW OSTOMY APPLIANCE APPLIED TO ILEOSTOMY TO RLQ. CALL LIGHT WITHIN REACH.
[2017-03-10] MEDS ORDERED: AMPYRA10 MG PO (14:15)
[2017-03-10] MEDS ORDERED: EFFEXOR-XR150 MG PO (14:15)
[2017-03-10] MEDS ORDERED: K-LOR 20MEQ20 ME1 PO (14:18)
[2017-03-10] MEDS ORDERED: CELEBREX100 MG PO (14:19)
[2017-03-10] MEDS ORDERED: WELLBUTRIN XL150 MG PO (14:20)
[2017-03-10] MEDS ORDERED: ATENOLOL-CHLOR1 EAC1 PO (14:22)
[2017-03-10] MEDS ORDERED: AUBAGIO14 M1 PO (14:26)
[2017-03-10] MEDS ORDERED: PROCARDIA XL30 MG PO (14:28)
[2017-03-10] MEDS ORDERED: BACLOFEN20 M1 PO (14:29)
--- NOTE | 2017-03-10 15:14 | NUR ---
ALICIA WEBB UPDATED ON WOUNDS, STATES TO APPLY DRY CLEAN DRESSING TO LLQ OLD COLOSTOMY SITE AND UPDATED THAT MED REC IS CURRENT PER LIST PROVIDED BY .
--- NOTE | 2017-03-10 15:17 | NUR ---
DR WHEELER NOTIFIED OF NEW CONSULT. NO NEW ORDERS.
--- NOTE | 2017-03-10 16:20 | NUR ---
MEDICATED WITH MORPHINE FOR 7/10 PAIN FROM HIPS DOWN. PT STATES PAIN IS ACHING. WILL MONITOR FOR EFFECTIVENESS.
--- NOTE | 2017-03-10 17:47 | NUR ---
PT STATES MORPHINE WAS EFFECTIVE FOR LEG AND FOOT PAIN. RESTING IN BED, NO DISTRESS NOTED.
--- NOTE | 2017-03-10 19:55 | NUR ---
PT. AWAKE, ALERT AND ORIENTED X 3 AT THIS TIME. PT. CURRENTLY DENIES CP, SOB, N/V/D OR PAIN. PT. COLOSTOMY C/D/I, STOMA APPROPRIATE COLOR. PT. PRESSURE AREAS ASYMPTOMATIC. CALL LIGHT WITHIN REACH, BED IN LOWEST POSITION, WHEELS LOCKED. SEE SHIFT ASSESSMENT.
--- NOTE | 2017-03-10 22:31 | NUR ---
24 HR chart check completed.
--- NOTE | 2017-03-10 22:46 | NUR ---
MEDICATED WITH PRN MORPHINE ORDERED FOR C/O PAIN TO LOWER BACK, HIPS AND LEGS. RATES PAIN 12/24. WILL MONITOR FOR EFFECTIVENESS.
[2017-03-11] VITALS: BP 92/50
[2017-03-11 06:33] LABS: BASO % 0.6 % (0.0-1.0); EOS % 0.3 % (1.0-4.0); HEMATOCRIT 27.1 % (42.0-52.0); HEMOGLOBIN 8.6 g/dl (14.0-18.0); LYMPH # 1.3 10*3/uL (1.3-4.4); LYMPH % 41.4 % (27.0-41.0); MEAN CELL VOLUME 90.9 fl (80.0-94.0); MEAN CORPUSCULAR HGB 28.9 pg (27.0-31.0); MEAN CORPUSCULAR HGB CONC 31.7 g/dl (33.0-37.0); MEAN PLATELET VOLUME 11.3 fl (9.6-12.3); MONO # 0.1 10*3/uL (0.1-1.0); MONO % 3.7 % (3.0-9.0); NEUT # 1.7 10*3/uL (2.3-7.9); NEUT % 53.7 % (47.0-73.0); RED BLOOD COUNT 2.98 10*6/uL (4.50-5.90); WHITE BLOOD COUNT 3.2 10*3/uL (4.8-10.8)
[2017-03-11 06:34] LABS: PLATELET COUNT AUTOMATED 145 10*3/uL (130-400)
--- NOTE | 2017-03-11 06:46 | NUR ---
C/O 8/10 PAIN FROM BILATERL HIPS TO BILATERAL FEET. MEDICATED WITH PRN MORPHINE ORDERED AND PER PATIENT REQUEST.
[2017-03-11 07:03] LABS: ALBUMIN 1.9 gm/dl (3.1-4.5); BUN 24 mg/dl (7-24); CHLORIDE 101 mmol/L (98-107); CHOLESTEROL 117 mg/dL (<200); PHOSPHOROUS 4.3 mg/dL (2.5-4.9); POTASSIUM 5.4 mmol/L (3.5-5.1); SGOT/AST 57 IU/L (3-35); SODIUM 136 mmol/L (136-145); TRIGLYCERIDES 139 mg/dl (<150); VLDL CHOLESTEROL 28 mg/dL (6-40)
[2017-03-11 07:11] LABS: ALKALINE PHOSPHATASE 408 U/L (45-117); CREATININE 0.89 mg/dL (0.70-1.30); FREE T4 1.13 ng/dl (0.76-1.46); HDL CHOLESTEROL 22 mg/dl (40-60); LDL CHOLESTEROL 67 mg/dL (9-159); SGPT/ALT 40 U/L (12-78); TOTAL PROTEIN 6.6 gm/dL (6.4-8.2)
[2017-03-11 07:43] LABS: VITAMIN D, 25-HYDROXY 23.5 ng/mL (30-100)
[2017-03-11 08:00] VITALS: BP 105/49
--- NOTE | 2017-03-11 09:00 | NUR ---
Forest Engineer in to talk to patient. Patient states lives at home with . There are few steps in the home. Physician: javier ferrera Pharmacy: [facility]: [facility] Patient's level of ADLs: MINIMAL ASSIST Patient has working utilities: all working DME: cane Follow-up physician's appointment after d/c: will be made by hospitalist nurse director upon discharge Does patient want to access PORTAL?: no Discharge plan discussed with patient, patient lives at home with , states he has a cane to use for ambulation, patient drives, he states he is receiving chemo two days a week and has [facility] health, discussed with him a short term usp and patient stated he would be returning home and wanted home health to continue, program planner will notify [facility] when patient is medically stable for discsharge. RICHIE KIDD
--- NOTE | 2017-03-11 10:10 | NUR ---
OT evaluation completed on 5th floor with full evaluation to follow. Precautions: IV, O2, fall risk, unsteady gait, acute debility. Patient with moderate complexity level (82348). Patient with decreased safety and (I) for ADL tasks. Recommend SNF if patient agreeable or HH occupational therapy. Thank you for this referral. Leslie Sanchez OTR/L
--- NOTE | 2017-03-11 10:10 | NUR ---
PHYSICAL THERAPY Physical Therapy Evaluation completed this date. See eval document for further details. Will begin PT intervention to address the impairments of muscle weakness, decreased functional mobility I, and difficulty ambulating. Pnt declines SNF, so recommend home with home health PT services as able. Pnt currently has services thru [facility]. [place]ity [place]: [place] [address] based on chart review and PT eval. Jazmin Robert, PT
[2017-03-11 12:00] VITALS: BP 100/54
--- NOTE | 2017-03-11 14:13 | NUR ---
DEYSI GILLIS [id number] Please refer to the physician's history and physical for past medical history, comorbid conditions, and allergies. Diagnosis: SYNCOPE,PNEUMONIA,DEHYDRATION Preet Score: 17,AT RISK WOUND DESCRIPTIONS: Location of the wound: LLQ Type of wound: SURGICAL Thickness: Full Size: 1.3CM X 1.2CM X 1.1CM Tunneling: NONE Undermining: NONE Sinus Tract: NONE Presence of Exudate: Serosanguineous Amount: Light Color: Red Odor: None Periwound Skin Appearance: Normal Wound edges: APPROXIMATED Pain (associated with wound): TENDER TO TOUCH How does patient state this happened? 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 HE STATED THAT HE DID FOLLOW UP IN THE WOUND CARE CENTER FOR THE MIDLINE INCISION NOT THE INCISION THAT HE HAS NOW. HE STATED HIS INSURANCE CHANGED AND HE WAS UNABLE TO CONTINUE FOLLOWING UP IN THE WOUND CARE CENTER BUT HIS INSURANCE IS CHANGED BACK AND WANTS TO FOLLOW UP DOWNSTAIRS. Location of the wound: LEFT MEDIAL FOOT Type of wound: UNSTAGEABLE Thickness: Full Size: 0.1CM X 0.1CM X <0.1CM Tunneling: NONE Undermining: NONE Sinus Tract: NONE Presence of Exudate: NONE Amount: None Color: Brown Odor: None Periwound Skin Appearance: Normal Wound edges: CLOSED Pain (associated with wound): NONE AT TIME OF ASSESSMENT How does patient state this happened? PT STATED HE HAD BLOOD CLOTS AND LOST ALL HIS TOES WHEN HE WAS 36 YEARS OLD. Location of the wound: LATERAL LEFT FOOT Type of wound: UNSTAGEABLE Thickness: Full Size: 0.3CM X 0.2CM X <0.1CM Tunneling: NONE Undermining: NONE Sinus Tract: NONE Presence of Exudate: NONE Amount: None Color: Brown Odor: None Periwound Skin Appearance: Normal Wound edges: CLOSED Pain (associated with wound): NONE AT TIME OF ASSESSMENT How does patient state this happened? PT STATED HE HAD BLOOD CLOTS AND HAD SURGERY WHEN HE WAS 36 AND LOST ALL OF HIS TOES. Surface the patient is resting on: Isoflex SKIN PREVENTION RECOMMENDATION: 1. Pressure redistribution support surface as appropriate 2. Elevate heels 3. Remove boots/TEDS every shift and reapply 4. Head of bed 30 degrees as tolerated 5. Assess nutrition and hydration 6. Manage moisture 7. Avoid the use of containment devices while in bed 8. Use absorptive products on surfaces limit layers of linens on bed 9. Turn and reposition every 1-2 hours in bed and every 1 hour in chair as tolerated 10. Weight shifts every 15 minutes while up in chair 11. Offloading with pillows or device to keep heels elevated off bed 12. Monitor skin at least every shift 13. Inspect under medical devices twice a day WOUND TREATMENT RECOMMENDATIONS: CONSULT DR. LUCAS FOR WOUND CARE RECOMMENDATION SINCE PATIENT WANTS TO FOLLOW UP IN THE WOUND CARE CENTER.
--- NOTE | 2017-03-11 14:23 | NUR ---
Dr. Engel notified of consult.
--- NOTE | 2017-03-11 15:41 | NUR ---
Medicated with morphine iv per prn order for complaints of pain to bl feet.
[2017-03-11 16:00] VITALS: BP 118/48
--- NOTE | 2017-03-11 16:30 | NUR ---
States that pain medication was effective.
[2017-03-11 20:00] VITALS: BP 97/58
--- NOTE | 2017-03-11 20:00 | NUR ---
RESTING IN BED WITH HOB SLIGHTLY ELEVATED. 02 INTACT AT 2LPM VIA NASAL CANNULA. LUNGS CLEAR & DIMINISHED; NO COUGH NOTED. PT. VOICES NO C/O PAIN OR DISCOMFORT AT THIS TIME. CALL LIGHT WITHIN REACH.
--- NOTE | 2017-03-11 22:00 | NUR ---
BLOOD SUGAR 130; NO COVERAGE REQUIRED AT THIS TIME. PT. TOOK PO MEDICATIONS WITHOUT DIFFICULTY. CALL LIGHT WITHIN REACH.
[2017-03-12] VITALS: BP 91/55
[2017-03-12 04:00] VITALS: BP 98/62
--- NOTE | 2017-03-12 04:00 | NUR ---
RESTING IN BED; AROUSES EASILY WHEN ENTERING THE ROOM. PT. VOICES NO C/O AT THIS TIME. CALL LIGHT WITHIN REACH.
--- NOTE | 2017-03-12 06:20 | NUR ---
BLOOD SUGAR 192; COVERAGE GIVEN EMAR.
[2017-03-12 06:54] LABS: ALBUMIN 1.7 gm/dl (3.1-4.5); BASO % 0.6 % (0.0-1.0); BUN 16 mg/dl (7-24); CHLORIDE 100 mmol/L (98-107); EOS % 0.9 % (1.0-4.0); HEMATOCRIT 25.1 % (42.0-52.0); HEMOGLOBIN 7.8 g/dl (14.0-18.0); LYMPH # 1.3 10*3/uL (1.3-4.4); LYMPH % 36.1 % (27.0-41.0); MEAN CELL VOLUME 91.9 fl (80.0-94.0); MEAN CORPUSCULAR HGB 28.6 pg (27.0-31.0); MEAN CORPUSCULAR HGB CONC 31.1 g/dl (33.0-37.0); MEAN PLATELET VOLUME 11.8 fl (9.6-12.3); MONO # 0.1 10*3/uL (0.1-1.0); MONO % 1.7 % (3.0-9.0); NEUT # 2.1 10*3/uL (2.3-7.9); NEUT % 60.4 % (47.0-73.0); PLATELET COUNT AUTOMATED 127 10*3/uL (130-400); RED BLOOD COUNT 2.73 10*6/uL (4.50-5.90); RED CELL DISTRI WIDTH 15.9 % (0-14.5); SGOT/AST 79 IU/L (3-35); SGPT/ALT 56 U/L (12-78); WHITE BLOOD COUNT 3.5 10*3/uL (4.8-10.8)
[2017-03-12 06:57] LABS: ALKALINE PHOSPHATASE 473 U/L (45-117); TOTAL PROTEIN 6.5 gm/dL (6.4-8.2)
[2017-03-12 07:10] LABS: SODIUM 137 mmol/L (136-145)
[2017-03-12 07:12] LABS: POTASSIUM 4.4 mmol/L (3.5-5.1)
[2017-03-12 08:00] VITALS: BP 111/64
--- NOTE | 2017-03-12 09:00 | NUR ---
case management visits with patient, patient will be going home when able and will resume [facility]. community development planner will notify home health when patient is medically stable for discharge
--- NOTE | 2017-03-12 09:00 | NUR ---
ADMINISTERED IV MORPHINE PER PT REQUEST FOR BILAT FOOT PAIN RATED 9/10. WILL MONITOR FOR EFFECTIVENESS.
--- NOTE | 2017-03-12 09:06 | NUR ---
PHYSICAL THERAPY Pt seen this AM 1:1 for his therapy session. Pt eating his breakfast, stopped back and his floor was wet. Will check back later. MAGNUS TABARES TECHNICIAN SUBMARINE CABLE EQUIPMENT.
--- NOTE | 2017-03-12 10:00 | NUR ---
Patient resting quietly with no c/o discomfort. Respirations easy and regular. Vital signs stable. No overt distress. ANDRESSA ECHEVARRIA
--- NOTE | 2017-03-12 11:05 | NUR ---
PHYSICAL THERAPY Back this AM to see Fab. All transfers were supervision X 1, no LOB with Pt putting his shoes on. Followed by gait with his straight cane 90' X 1, CG X 1, no LOB and little verbal cueing for gait safety, one sitting rest. End with act Ex to bilateral LE in sitting of LAQ's, marching, and ankle pumps with little verbal cueing for his Ex X 20 reps each, Pt with his call light sitting independent at bedside and did a very good job this visit. Said that he is going home with D/C from the hospital. MAGNUS TABARES TANK HOOP BENDER.
--- NOTE | 2017-03-12 11:53 | NUR ---
PATIENT SEEN FOR 25 MINUTES 1:1 THIS DATE. PATIENT IDENTIFIED BY NAME AND DATE OF . PATIENT IN BED UPON ARRIVAL. PATIENT COMPLETED SUPINE TO SIT EOB SBA. PATIENT EDUCATED PROPER FOOT WEAR FOR FALL PREVENTION WITH STANDING. PATIENT COMPLETED LB DRESSING DONNING NON SLIP SOCKS AND SHOES SBA AFTER DARDEN. PATIENT COMPLETED FUNCTIONAL XFER TRAINING SIT TO STAND ARM CHAIR/ BED X 5 TRIALS CGA WITH FAIR SAFETY AND VERBAL CUES REQUIRED PROPER HAND PLACEMENT. COMPLETED STAND PIVOT XFER BED TO ARM CHAIR AND BACK CGA USE FWW AND MOD VERBAL CUES SAFETY. PATIENT COMPLETED STAND TOLERANCE ACTIVTY USE FWW SUPPORT CGA X 3 TRIALS 2 MINUTE TOLERANCE WITH VERBAL CUES INCREASE STANCE. PATIENT C/O MINIMAL FATIGUE AFTER SESSION THIS DATE. PATIENT REQUESTED SIT TO SUPINE BED SBA AND DOFFED SHOES SBA. CALL LIGHT WITHIN REACH. MYRIAM BOJORQUEZ/Savage
[2017-03-12 12:00] VITALS: BP 114/57
--- NOTE | 2017-03-12 15:18 | NUR ---
DR CORTES CALLED AND ASKED IF DR LUCAS HAD SEEN THE PATIENT YET. I EXPLAINED THAT HE HAD NOT TODAY. THIS NURSE CALLED WOUND CLINIC AND LEFT MESSAGE. DR CORTES NOTIFIED
[2017-03-12 16:00] VITALS: BP 116/60
[2017-03-12] MEDS ORDERED: LEVAQUIN750 M1 PO (17:36)
--- NOTE | 2017-03-12 18:15 | NUR ---
Discharge instructions reviewed with patient/family. Patient receptive and verbalizes understanding. Follow-up care arranged. Written instructions given to patient/family. PT INITIALLY AGREED TO WOUND PHOTOS. WHEN THIS NURSE WENT IN TO TAKE WOUND PHOTOS AND DISCHARGE HIM HE WAS FULLY DRESSED AND SAID HE "FORGOT" HE THEN DECLINED TO GET UNDRESSED FOR PHOTOS STATING "HEY YOU JUST CLEANED IT AND PUT A NEW BANDAGE ON IT ANYWAY." PRINTED LARGE CLEAR INSTRUCTIONS ON DC PAPERWORK (VERY SPECIFIC) REGARDING DAILY WOUND CLEANSING AND DRESSING CHANGES. ANDRESSA ECHEVARRIA
--- NOTE | 2017-03-15 07:56 | NUR ---
PHYSICAL THERAPY CO-SIGN I approve of the Phyical Therapy notes written above. MATT PA PT
--- NOTE | 2017-03-15 08:03 | NUR ---
OCCUPATIONAL THERAPY CO-SIGN I approve of the Occupational Therapy notes written above. TAHIRA BAH OTR/Savage
== END 2017-03-12 18:15 | disposition home or self-care (01) | DRG 190 ==
LOC: ED 09:20 → 5E 12:12 → EDHOLD 12:12 → 5E 12:17
PROVIDERS: Emergency Medicine; Internal Medicine Nephrology; Registered Nurse; ADMIT Internal Medicine
DX: J44.0 Chronic obstructive pulmonary disease with (acute) lower respiratory infection (principal); J15.6 Pneumonia due to other Gram-negative bacteria; E43 Unspecified severe protein-calorie malnutrition; E11.51 Type 2 diabetes mellitus with diabetic peripheral angiopathy without gangrene; C78.7 Secondary malignant neoplasm of liver and intrahepatic bile duct; D64.81 Anemia due to antineoplastic chemotherapy; E11.65 Type 2 diabetes mellitus with hyperglycemia; E87.1 Hypo-osmolality and hyponatremia; C18.7 Malignant neoplasm of sigmoid colon; I95.9 Hypotension, unspecified; E86.0 Dehydration; I10 Essential (primary) hypertension; M10.9 Gout, unspecified; E78.00 Pure hypercholesterolemia, unspecified; R55 Syncope and collapse; E55.9 Vitamin D deficiency, unspecified; N40.0 Benign prostatic hyperplasia without lower urinary tract symptoms; Z92.21 Personal history of antineoplastic chemotherapy; Z93.3 Colostomy status; Z86.718 Personal history of other venous thrombosis and embolism; Z86.711 Personal history of pulmonary embolism; Z87.01 Personal history of pneumonia (recurrent); Z98.62 Peripheral vascular angioplasty status; Z89.422 Acquired absence of other left toe(s); Z89.421 Acquired absence of other right toe(s); Z80.1 Family history of malignant neoplasm of trachea, bronchus and lung; Z81.1 Family history of alcohol abuse and dependence; Z80.8 Family history of malignant neoplasm of other organs or systems; Z82.49 Family history of ischemic heart disease and other diseases of the circulatory system; Z82.3 Family history of stroke; Z83.3 Family history of diabetes mellitus; Z90.49 Acquired absence of other specified parts of digestive tract; Z91.81 History of falling; Z79.82 Long term (current) use of aspirin; Z79.84 Long term (current) use of oral hypoglycemic drugs; Z79.899 Other long term (current) drug therapy; F17.210 Nicotine dependence, cigarettes, uncomplicated; Z68.22 Body mass index [BMI] 22.0-22.9, adult

== ENCOUNTER 2017-03-13 16:29 | Inpatient (IN) | payer OTHER ==
[~2017-03-13] VITALS: Ht 167.6 cm; Wt 63.5 kg
[2017-03-13] VITALS (13 sets, daily range): BP systolic 79–123; BP diastolic 36–60
[~2017-03-13 16:29] MED LIST changes: +AMPYRA10 MG PO; +ATENOLOL-CHLOR1 EAC1 PO; +AUBAGIO14 M1 PO; +BACLOFEN20 M1 PO; +CELEBREX100 MG PO; +EFFEXOR-XR150 MG PO; +K-LOR 20MEQ20 ME1 PO; +LASIX20 MG PO; +LEVAQUIN750 M1 PO; +LEVOTHYROXINE75 MCG PO; +METFORMIN500 MG PO; +METOCLOPRAMIDE10 MG PO; +PROCARDIA XL30 MG PO; +WELLBUTRIN XL150 MG PO; +ZANTAC 150150 MG PO; +ZOFRAN8 M1 PO
[2017-03-13 16:47] LABS: BASO % 0.3 % (0.0-1.0); EOS # 0.3 10*3/uL (0.0-0.4); EOS % 3.4 % (1.0-4.0); HEMATOCRIT 21.6 % (42.0-52.0); HEMOGLOBIN 6.9 g/dl (14.0-18.0); LYMPH # 2.4 10*3/uL (1.3-4.4); LYMPH % 30.8 % (27.0-41.0); MEAN CELL VOLUME 91.9 fl (80.0-94.0); MEAN CORPUSCULAR HGB 29.4 pg (27.0-31.0); MEAN CORPUSCULAR HGB CONC 31.9 g/dl (33.0-37.0); MEAN PLATELET VOLUME 11.5 fl (9.6-12.3); MONO # 0.2 10*3/uL (0.1-1.0); MONO % 2.2 % (3.0-9.0); NEUT # 4.8 10*3/uL (2.3-7.9); NEUT % 62.8 % (47.0-73.0); PLATELET COUNT AUTOMATED 158 10*3/uL (130-400); RED BLOOD COUNT 2.35 10*6/uL (4.50-5.90); RED CELL DISTRI WIDTH 15.9 % (0-14.5); WHITE BLOOD COUNT 7.7 10*3/uL (4.8-10.8)
[2017-03-13 16:57] LABS: ACT PARTIAL THROMBO TIME 30.6 SECONDS (20.8-31.5); INTERNATIONAL NORM RATIO 1.1 (2.0-3.5)
[2017-03-13 17:04] LABS: ALBUMIN 1.8 gm/dl (3.1-4.5); ALKALINE PHOSPHATASE 439 U/L (45-117); BUN 17 mg/dl (7-24); CHLORIDE 105 mmol/L (98-107); POTASSIUM 5.5 mmol/L (3.5-5.1); SGOT/AST 49 IU/L (3-35); SGPT/ALT 47 U/L (12-78); SODIUM 138 mmol/L (136-145); TOTAL PROTEIN 6.2 gm/dL (6.4-8.2)
[2017-03-14] VITALS (14 sets, daily range): BP systolic 109–134; BP diastolic 49–68
[2017-03-14 01:11] LABS: BASO % 0.2 % (0.0-1.0); EOS # 0.2 10*3/uL (0.0-0.4); EOS % 3.3 % (1.0-4.0); HEMATOCRIT 19.7 % (42.0-52.0); HEMOGLOBIN 6.2 g/dl (14.0-18.0); LYMPH # 1.5 10*3/uL (1.3-4.4); LYMPH % 32.8 % (27.0-41.0); MEAN CELL VOLUME 92.1 fl (80.0-94.0); MEAN CORPUSCULAR HGB CONC 31.5 g/dl (33.0-37.0); MEAN PLATELET VOLUME 12.1 fl (9.6-12.3); MONO # 0.1 10*3/uL (0.1-1.0); MONO % 2.8 % (3.0-9.0); NEUT # 2.8 10*3/uL (2.3-7.9); NEUT % 60.5 % (47.0-73.0); RED BLOOD COUNT 2.14 10*6/uL (4.50-5.90); RED CELL DISTRI WIDTH 15.9 % (0-14.5); WHITE BLOOD COUNT 4.6 10*3/uL (4.8-10.8)
[2017-03-14 01:13] LABS: PLATELET COUNT AUTOMATED 103 10*3/uL (130-400)
[2017-03-14 06:25] LABS: BASO % 0.4 % (0.0-1.0); EOS # 0.2 10*3/uL (0.0-0.4); EOS % 3.4 % (1.0-4.0); HEMATOCRIT 23.8 % (42.0-52.0); HEMOGLOBIN 7.6 g/dl (14.0-18.0); LYMPH # 1.7 10*3/uL (1.3-4.4); LYMPH % 32.2 % (27.0-41.0); MEAN CELL VOLUME 91.2 fl (80.0-94.0); MEAN CORPUSCULAR HGB 29.1 pg (27.0-31.0); MEAN CORPUSCULAR HGB CONC 31.9 g/dl (33.0-37.0); MEAN PLATELET VOLUME 11.4 fl (9.6-12.3); MONO # 0.2 10*3/uL (0.1-1.0); NEUT # 3.2 10*3/uL (2.3-7.9); NEUT % 60.4 % (47.0-73.0); PLATELET COUNT AUTOMATED 97 10*3/uL (130-400); RED BLOOD COUNT 2.61 10*6/uL (4.50-5.90); RED CELL DISTRI WIDTH 15.3 % (0-14.5); WHITE BLOOD COUNT 5.3 10*3/uL (4.8-10.8)
[2017-03-14 06:54] LABS: BUN 13 mg/dl (7-24); CHLORIDE 107 mmol/L (98-107); CREATININE 0.83 mg/dL (0.70-1.30); POTASSIUM 4.9 mmol/L (3.5-5.1); SODIUM 138 mmol/L (136-145)
[2017-03-14 07:13] LABS: ACT PARTIAL THROMBO TIME 30.2 SECONDS (20.8-31.5); INTERNATIONAL NORM RATIO 1.1 (2.0-3.5)
[2017-03-15] VITALS (7 sets, daily range): BP systolic 104–113; BP diastolic 46–53
[2017-03-15 05:03] LABS: BASO % 0.2 % (0.0-1.0); EOS # 0.1 10*3/uL (0.0-0.4); EOS % 2.5 % (1.0-4.0); HEMATOCRIT 21.7 % (42.0-52.0); HEMOGLOBIN 6.7 g/dl (14.0-18.0); LYMPH # 1.7 10*3/uL (1.3-4.4); LYMPH % 30.1 % (27.0-41.0); MEAN CELL VOLUME 93.5 fl (80.0-94.0); MEAN CORPUSCULAR HGB 28.9 pg (27.0-31.0); MEAN CORPUSCULAR HGB CONC 30.9 g/dl (33.0-37.0); MEAN PLATELET VOLUME 12.3 fl (9.6-12.3); MONO # 0.3 10*3/uL (0.1-1.0); MONO % 5.4 % (3.0-9.0); NEUT # 3.4 10*3/uL (2.3-7.9); NEUT % 61.1 % (47.0-73.0); PLATELET COUNT AUTOMATED 86 10*3/uL (130-400); RED BLOOD COUNT 2.32 10*6/uL (4.50-5.90); RED CELL DISTRI WIDTH 15.5 % (0-14.5); WHITE BLOOD COUNT 5.6 10*3/uL (4.8-10.8)
[2017-03-15 05:33] LABS: ALBUMIN 1.6 gm/dl (3.1-4.5); BUN 8 mg/dl (7-24); CHLORIDE 107 mmol/L (98-107); CREATININE 0.74 mg/dL (0.70-1.30); POTASSIUM 4.4 mmol/L (3.5-5.1); SGOT/AST 41 IU/L (3-35); SGPT/ALT 34 U/L (12-78); SODIUM 138 mmol/L (136-145); TOTAL PROTEIN 5.1 gm/dL (6.4-8.2)
[2017-03-15 05:34] LABS: ALKALINE PHOSPHATASE 344 U/L (45-117)
== END 2017-03-15 14:41 | disposition left against medical advice (07) | DRG 908 ==
LOC: ED 16:29 → EDHOLD 17:43 → ICCU 17:43
PROVIDERS: Emergency Medicine; Family Medicine; Internal Medicine; ADMIT Internal Medicine
PROC: 30233N1 Transfusion of Nonautologous Red Blood Cells into Peripheral Vein, Percutaneous Approach (ICD-10-PCS; 2017-03-13)
PROC: 0W3F3ZZ Control Bleeding in Abdominal Wall, Percutaneous Approach (ICD-10-PCS; 2017-03-13)
PROC: 3E013BZ Introduction of Anesthetic Agent into Subcutaneous Tissue, Percutaneous Approach (ICD-10-PCS; 2017-03-13)
PROC: 3E013GC Introduction of Other Therapeutic Substance into Subcutaneous Tissue, Percutaneous Approach (ICD-10-PCS; 2017-03-13)
PROC: 05LY0ZZ Occlusion of Upper Vein, Open Approach (ICD-10-PCS; principal; 2017-03-14)
DX: K91.840 Postprocedural hemorrhage of a digestive system organ or structure following a digestive system procedure (principal); C78.7 Secondary malignant neoplasm of liver and intrahepatic bile duct; D69.6 Thrombocytopenia, unspecified; E11.51 Type 2 diabetes mellitus with diabetic peripheral angiopathy without gangrene; R65.10 Systemic inflammatory response syndrome (SIRS) of non-infectious origin without acute organ dysfunction; E11.649 Type 2 diabetes mellitus with hypoglycemia without coma; T81.31XA Disruption of external operation (surgical) wound, not elsewhere classified, initial encounter; D62 Acute posthemorrhagic anemia; C18.9 Malignant neoplasm of colon, unspecified; I95.9 Hypotension, unspecified; E11.65 Type 2 diabetes mellitus with hyperglycemia; E87.5 Hyperkalemia; E86.0 Dehydration; K43.2 Incisional hernia without obstruction or gangrene; R00.0 Tachycardia, unspecified; R74.0 Nonspecific elevation of levels of transaminase and lactic acid dehydrogenase [LDH]; J44.9 Chronic obstructive pulmonary disease, unspecified; I10 Essential (primary) hypertension; E78.00 Pure hypercholesterolemia, unspecified; F17.210 Nicotine dependence, cigarettes, uncomplicated; Z53.21 Procedure and treatment not carried out due to patient leaving prior to being seen by health care provider; N40.0 Benign prostatic hyperplasia without lower urinary tract symptoms; R14.0 Abdominal distension (gaseous); Z72.89 Other problems related to lifestyle; Z83.3 Family history of diabetes mellitus; Z82.49 Family history of ischemic heart disease and other diseases of the circulatory system; Z82.3 Family history of stroke; Z89.429 Acquired absence of other toe(s), unspecified side; Z79.82 Long term (current) use of aspirin; Z79.84 Long term (current) use of oral hypoglycemic drugs; Z79.899 Other long term (current) drug therapy; Y92.89 Other specified places as the place of occurrence of the external cause; Z99.81 Dependence on supplemental oxygen; I86.8 Varicose veins of other specified sites; Y83.3 Surgical operation with formation of external stoma as the cause of abnormal reaction of the patient, or of later complication, without mention of misadventure at the time of the procedure; S31.109A Unspecified open wound of abdominal wall, unspecified quadrant without penetration into peritoneal cavity, initial encounter

== ENCOUNTER → 2017-03-25 | Outpatient (CLI) | payer OTHER | END | disposition home or self-care (01) | LOC: WOUNDCARE 02:46 | DX: T81.89XA Other complications of procedures, not elsewhere classified, initial encounter (principal); I10 Essential (primary) hypertension; E78.00 Pure hypercholesterolemia, unspecified; E11.9 Type 2 diabetes mellitus without complications; C78.7 Secondary malignant neoplasm of liver and intrahepatic bile duct; Z85.038 Personal history of other malignant neoplasm of large intestine; F17.210 Nicotine dependence, cigarettes, uncomplicated; Y83.8 Other surgical procedures as the cause of abnormal reaction of the patient, or of later complication, without mention of misadventure at the time of the procedure ==

== ENCOUNTER → 2017-04-01 | Outpatient (CLI) | payer OTHER | END | disposition home or self-care (01) | LOC: WOUNDCARE 10:17 | DX: T81.89XD Other complications of procedures, not elsewhere classified, subsequent encounter (principal); I10 Essential (primary) hypertension; E78.00 Pure hypercholesterolemia, unspecified; E11.9 Type 2 diabetes mellitus without complications; C18.9 Malignant neoplasm of colon, unspecified; C78.7 Secondary malignant neoplasm of liver and intrahepatic bile duct; K43.2 Incisional hernia without obstruction or gangrene; F17.210 Nicotine dependence, cigarettes, uncomplicated; Y83.8 Other surgical procedures as the cause of abnormal reaction of the patient, or of later complication, without mention of misadventure at the time of the procedure ==

== ENCOUNTER → 2017-04-30 | Outpatient (CLI) | payer OTHER ==
[~2017-04-30] VITALS: Ht 167.6 cm; Wt 61.2 kg
[~2017-04-30] MED LIST changes: +COZAAR50 M1 PO; +LANTUS SOL100 UNIT/1 SQ; +LOPID600 M1 PO; -LOPID600 MG; +LOVASTATIN20 MG PO; +OXYCODONE5 M1 PO; -PROAIR HFA0.09 MG/AC INH; +PROAIR HFA8.5 GM INH; -REQUIP2 MG PO; +REQUIP4 MG PO; +SPIRIVA -- 3018 MCG INH
[2017-04-30 11:31] VITALS: BP 129/59
[2017-04-30 12:55] VITALS: BP 129/63
[2017-04-30 13:10] VITALS: BP 122/60
[2017-04-30 13:25] VITALS: BP 126/77
[2017-04-30 14:03] VITALS: BP 120/71
[2017-04-30 14:50] VITALS: BP 112/62
== END ==
LOC: CT 04-29 00:09 → SDC 04-29 12:30 → EDSTATUS 04-29 12:30 → CT 04-29 12:30
DX: C18.7 Malignant neoplasm of sigmoid colon (principal); R16.0 Hepatomegaly, not elsewhere classified

== ENCOUNTER 2017-05-21 13:04 | Inpatient (IN) | payer OTHER ==
[~2017-05-21] VITALS: Ht 167.6 cm; Wt 58.2 kg
[~2017-05-21 13:04] MED LIST changes: -COZAAR50 M1 PO; -LANTUS SOL100 UNIT/1 SQ; -LOVASTATIN20 MG PO; -OXYCODONE5 M1 PO; -SPIRIVA -- 3018 MCG INH
[2017-05-21 13:17] VITALS: BP 92/49
[2017-05-21 13:43] LABS: BASO # 0.1 10*3/uL (0.0-0.1); BASO % 0.6 % (0.0-1.0); EOS # 0.2 10*3/uL (0.0-0.4); EOS % 1.4 % (1.0-4.0); HEMOGLOBIN 8.6 g/dl (14.0-18.0); LYMPH # 2.1 10*3/uL (1.3-4.4); LYMPH % 13.4 % (27.0-41.0); MEAN CELL VOLUME 96.2 fl (80.0-94.0); MEAN CORPUSCULAR HGB 29.6 pg (27.0-31.0); MEAN CORPUSCULAR HGB CONC 30.7 g/dl (33.0-37.0); MEAN PLATELET VOLUME 10.8 fl (9.6-12.3); MONO # 1.3 10*3/uL (0.1-1.0); MONO % 8.3 % (3.0-9.0); NEUT # 11.8 10*3/uL (2.3-7.9); NEUT % 75.7 % (47.0-73.0); PLATELET COUNT AUTOMATED 193 10*3/uL (130-400); RED BLOOD COUNT 2.91 10*6/uL (4.50-5.90); RED CELL DISTRI WIDTH 17.9 % (0-14.5); WHITE BLOOD COUNT 15.5 10*3/uL (4.8-10.8)
[2017-05-21 13:47] VITALS: BP 101/43
[2017-05-21 13:59] LABS: ALBUMIN 2.5 gm/dl (3.1-4.5); ALKALINE PHOSPHATASE 959 U/L (45-117); BUN 61 mg/dl (7-24); CHLORIDE 108 mmol/L (98-107); CREATININE 2.82 mg/dL (0.70-1.30); LIPASE 757 U/L (73-393); SGOT/AST 67 IU/L (3-35); SGPT/ALT 45 U/L (12-78); SODIUM 136 mmol/L (136-145); TOTAL PROTEIN 8.3 gm/dL (6.4-8.2)
[2017-05-21 14:07] LABS: TROPONIN I < 0.015 ng/ml (<0.045)
[2017-05-21 14:10] LABS: POTASSIUM 6.6 mmol/L (3.5-5.1)
[2017-05-21 14:37] LABS: BILIRUBIN 1+ (NEGATIVE); BLOOD TRACE-INTACT (NEGATIVE); CLARITY CLEAR (CLEAR); COLOR YELLOW (YELLOW); GLUCOSE NEGATIVE (NEGATIVE); KETONE NEGATIVE (NEGATIVE); LEUKO ESTERASE NEGATIVE (NEGATIVE); NITRITE NEGATIVE (NEGATIVE); SPECIFIC GRAVITY 1.025 (1.005-1.030); UROBILINOGEN 0.2 E.U./dl (0.2-1.0)
[2017-05-21 14:49] LABS: HYALINE CAST 51-100
[2017-05-21 14:50] LABS: BACTERIA 3+
[2017-05-21 15:20] VITALS: BP 97/46
[2017-05-21 16:33] VITALS: BP 107/58
[2017-05-21] MEDS ORDERED: ULTRAM50 MG PO (16:44)
[2017-05-21] MEDS ORDERED: SPIRIVA -- 3018 MCG INH (16:46)
[2017-05-21] MEDS ORDERED: LOVASTATIN20 MG PO (16:49)
[2017-05-21] MEDS ORDERED: COZAAR50 M1 PO (16:52)
[2017-05-21 17:00] VITALS: BP 92/57
[2017-05-21] MEDS ORDERED: LANTUS SOL100 UNIT/1 SQ (18:08)
[2017-05-21 19:20] LABS: CREATININE 2.62 mg/dL (0.70-1.30)
[2017-05-21 19:22] LABS: POTASSIUM 6.2 mmol/L (3.5-5.1)
[2017-05-21 20:00] VITALS: BP 100/52
[2017-05-22] VITALS: BP 92/50
[2017-05-22 04:00] VITALS: BP 91/53
[2017-05-22 06:27] LABS: BASO # 0.1 10*3/uL (0.0-0.1); BASO % 0.5 % (0.0-1.0); EOS # 0.2 10*3/uL (0.0-0.4); EOS % 1.6 % (1.0-4.0); HEMATOCRIT 24.7 % (42.0-52.0); HEMOGLOBIN 7.5 g/dl (14.0-18.0); LYMPH # 2.1 10*3/uL (1.3-4.4); LYMPH % 19.9 % (27.0-41.0); MEAN CORPUSCULAR HGB 29.8 pg (27.0-31.0); MEAN CORPUSCULAR HGB CONC 30.4 g/dl (33.0-37.0); MEAN PLATELET VOLUME 11.9 fl (9.6-12.3); MONO # 0.9 10*3/uL (0.1-1.0); MONO % 8.4 % (3.0-9.0); NEUT # 7.1 10*3/uL (2.3-7.9); NEUT % 69.1 % (47.0-73.0); PLATELET COUNT AUTOMATED 153 10*3/uL (130-400); RED BLOOD COUNT 2.52 10*6/uL (4.50-5.90); WHITE BLOOD COUNT 10.3 10*3/uL (4.8-10.8)
[2017-05-22 06:51] LABS: ACT PARTIAL THROMBO TIME 30.6 SECONDS (20.8-31.5)
[2017-05-22 06:58] LABS: ALBUMIN 2.2 gm/dl (3.1-4.5); CREATININE 1.84 mg/dL (0.70-1.30); PHOSPHOROUS 4.1 mg/dL (2.5-4.9)
[2017-05-22 07:05] LABS: FREE T4 0.99 ng/dl (0.76-1.46); THYROID STIM HORMONE (HS) 1.44 uIU/ml (0.358-4.75); TOTAL PROTEIN 7.2 gm/dL (6.4-8.2)
[2017-05-22 07:47] LABS: VITAMIN D, 25-HYDROXY 79.6 ng/mL (30-100)
[2017-05-22 08:00] VITALS: BP 100/52
[2017-05-22 12:00] VITALS: BP 96/51
[2017-05-22 16:00] VITALS: BP 81/44; BP 94/50
[2017-05-22 20:00] VITALS: BP 102/52
[2017-05-23] VITALS: BP 97/48
[2017-05-23 04:00] VITALS: BP 100/50
[2017-05-23 06:07] LABS: CHLORIDE 113 mmol/L (98-107); CREATININE 1.11 mg/dL (0.70-1.30); LIPASE 268 U/L (73-393)
[2017-05-23 06:12] LABS: SODIUM 142 mmol/L (136-145)
[2017-05-23 06:24] LABS: BUN 31 mg/dl (7-24); POTASSIUM 4.9 mmol/L (3.5-5.1)
[2017-05-23 07:49] LABS: BASO % 0.1 % (0.0-1.0); EOS # 0.2 10*3/uL (0.0-0.4); HEMATOCRIT 20.6 % (42.0-52.0); HEMOGLOBIN 6.3 g/dl (14.0-18.0); LYMPH # 1.6 10*3/uL (1.3-4.4); LYMPH % 20.9 % (27.0-41.0); MEAN CELL VOLUME 96.7 fl (80.0-94.0); MEAN CORPUSCULAR HGB 29.6 pg (27.0-31.0); MEAN CORPUSCULAR HGB CONC 30.6 g/dl (33.0-37.0); MEAN PLATELET VOLUME 10.9 fl (9.6-12.3); MONO # 0.7 10*3/uL (0.1-1.0); MONO % 8.7 % (3.0-9.0); NEUT # 5.3 10*3/uL (2.3-7.9); NEUT % 67.8 % (47.0-73.0); PLATELET COUNT AUTOMATED 115 10*3/uL (130-400); RED BLOOD COUNT 2.13 10*6/uL (4.50-5.90); RED CELL DISTRI WIDTH 17.9 % (0-14.5); WHITE BLOOD COUNT 7.8 10*3/uL (4.8-10.8)
[2017-05-23 10:20] VITALS: BP 100/54
[2017-05-23 12:10] VITALS: BP 98/50
[2017-05-23 16:00] VITALS: BP 100/56
[2017-05-23 19:32] LABS: BASO % 0.4 % (0.0-1.0); EOS # 0.2 10*3/uL (0.0-0.4); EOS % 1.6 % (1.0-4.0); HEMATOCRIT 24.6 % (42.0-52.0); HEMOGLOBIN 7.7 g/dl (14.0-18.0); LYMPH # 1.7 10*3/uL (1.3-4.4); LYMPH % 16.3 % (27.0-41.0); MEAN CORPUSCULAR HGB 29.7 pg (27.0-31.0); MEAN CORPUSCULAR HGB CONC 31.3 g/dl (33.0-37.0); MEAN PLATELET VOLUME 11.8 fl (9.6-12.3); MONO # 0.8 10*3/uL (0.1-1.0); MONO % 8.3 % (3.0-9.0); NEUT # 7.4 10*3/uL (2.3-7.9); NEUT % 72.9 % (47.0-73.0); PLATELET COUNT AUTOMATED 116 10*3/uL (130-400); RED BLOOD COUNT 2.59 10*6/uL (4.50-5.90); RED CELL DISTRI WIDTH 18.2 % (0-14.5); WHITE BLOOD COUNT 10.2 10*3/uL (4.8-10.8)
[2017-05-24] VITALS: BP 102/55
[2017-05-24 05:00] VITALS: BP 105/54
[2017-05-24 05:39] LABS: BUN 25 mg/dl (7-24); CHLORIDE 114 mmol/L (98-107); CREATININE 0.96 mg/dL (0.70-1.30); POTASSIUM 4.6 mmol/L (3.5-5.1); SODIUM 141 mmol/L (136-145)
[2017-05-24 05:54] LABS: BASO % 0.5 % (0.0-1.0); EOS # 0.2 10*3/uL (0.0-0.4); EOS % 1.9 % (1.0-4.0); HEMATOCRIT 24.4 % (42.0-52.0); HEMOGLOBIN 7.5 g/dl (14.0-18.0); LYMPH # 1.9 10*3/uL (1.3-4.4); LYMPH % 21.9 % (27.0-41.0); MEAN CELL VOLUME 96.1 fl (80.0-94.0); MEAN CORPUSCULAR HGB 29.5 pg (27.0-31.0); MEAN CORPUSCULAR HGB CONC 30.7 g/dl (33.0-37.0); MEAN PLATELET VOLUME 11.8 fl (9.6-12.3); MONO # 0.7 10*3/uL (0.1-1.0); MONO % 8.4 % (3.0-9.0); NEUT # 5.9 10*3/uL (2.3-7.9); PLATELET COUNT AUTOMATED 112 10*3/uL (130-400); RED BLOOD COUNT 2.54 10*6/uL (4.50-5.90); RED CELL DISTRI WIDTH 17.9 % (0-14.5); WHITE BLOOD COUNT 8.9 10*3/uL (4.8-10.8)
[2017-05-24 08:00] VITALS: BP 93/51
[2017-05-24 12:00] VITALS: BP 90/52
[2017-05-24] MEDS ORDERED: OXYCODONE5 M1 PO (14:16)
== END 2017-05-24 14:40 | disposition home health service (06) | DRG 682 ==
LOC: ED 13:04 → ICCU 15:30 → EDHOLD 15:30 → ICCU 15:56
PROVIDERS: Internal Medicine; Internal Medicine Nephrology; Student in an Organized Health Care Education/Training Program
PROC: 30233N1 Transfusion of Nonautologous Red Blood Cells into Peripheral Vein, Percutaneous Approach (ICD-10-PCS; principal; 2017-05-23)
DX: N17.0 Acute kidney failure with tubular necrosis (principal); K85.90 Acute pancreatitis without necrosis or infection, unspecified; R65.11 Systemic inflammatory response syndrome (SIRS) of non-infectious origin with acute organ dysfunction; E43 Unspecified severe protein-calorie malnutrition; Z93.0 Tracheostomy status; C78.7 Secondary malignant neoplasm of liver and intrahepatic bile duct; E11.51 Type 2 diabetes mellitus with diabetic peripheral angiopathy without gangrene; C18.7 Malignant neoplasm of sigmoid colon; E83.52 Hypercalcemia; E87.8 Other disorders of electrolyte and fluid balance, not elsewhere classified; E11.65 Type 2 diabetes mellitus with hyperglycemia; E87.5 Hyperkalemia; R74.0 Nonspecific elevation of levels of transaminase and lactic acid dehydrogenase [LDH]; J44.9 Chronic obstructive pulmonary disease, unspecified; I10 Essential (primary) hypertension; M1A.9XX0 Chronic gout, unspecified, without tophus (tophi); N40.0 Benign prostatic hyperplasia without lower urinary tract symptoms; F17.200 Nicotine dependence, unspecified, uncomplicated; D53.9 Nutritional anemia, unspecified; Z79.4 Long term (current) use of insulin; Z86.718 Personal history of other venous thrombosis and embolism; Z86.711 Personal history of pulmonary embolism; Z93.2 Ileostomy status; Z72.89 Other problems related to lifestyle; Z81.2 Family history of tobacco abuse and dependence; Z81.1 Family history of alcohol abuse and dependence; Z80.1 Family history of malignant neoplasm of trachea, bronchus and lung; Z80.8 Family history of malignant neoplasm of other organs or systems; Z79.82 Long term (current) use of aspirin; Z79.899 Other long term (current) drug therapy; Z68.20 Body mass index [BMI] 20.0-20.9, adult

== ENCOUNTER 2017-06-01 14:10 | Emergency (ER) | payer OTHER ==
[~2017-06-01] VITALS: Ht 165.1 cm; Wt 61.2 kg
[~2017-06-01 14:10] MED LIST changes: +COZAAR50 M1 PO; +LANTUS SOL100 UNIT/1 SQ; +LOVASTATIN20 MG PO; +OXYCODONE5 M1 PO; +SPIRIVA -- 3018 MCG INH
[2017-06-01 14:56] LABS: BASO % 0.1 % (0.0-1.0); HEMATOCRIT 28.5 % (42.0-52.0); HEMOGLOBIN 9.2 g/dl (14.0-18.0); LYMPH # 0.8 10*3/uL (1.3-4.4); LYMPH % 7.6 % (27.0-41.0); MEAN CELL VOLUME 91.9 fl (80.0-94.0); MEAN CORPUSCULAR HGB 29.7 pg (27.0-31.0); MEAN CORPUSCULAR HGB CONC 32.3 g/dl (33.0-37.0); MEAN PLATELET VOLUME 13.2 fl (9.6-12.3); MONO # 0.3 10*3/uL (0.1-1.0); MONO % 3.1 % (3.0-9.0); NEUT # 9.1 10*3/uL (2.3-7.9); NEUT % 88.6 % (47.0-73.0); PLATELET COUNT AUTOMATED 146 10*3/uL (130-400); RED CELL DISTRI WIDTH 17.6 % (0-14.5); WHITE BLOOD COUNT 10.3 10*3/uL (4.8-10.8)
[2017-06-01 15:05] LABS: ACT PARTIAL THROMBO TIME 32.6 SECONDS (20.8-31.5); INTERNATIONAL NORM RATIO 1.2 (2.0-3.5)
[2017-06-01 15:11] LABS: ALBUMIN 1.8 gm/dl (3.1-4.5); ALKALINE PHOSPHATASE 502 U/L (45-117); BUN 102 mg/dl (7-24); CHLORIDE 109 mmol/L (98-107); CREATININE 3.75 mg/dL (0.70-1.30); LIPASE 286 U/L (73-393); SGOT/AST 55 IU/L (3-35); SGPT/ALT 69 U/L (12-78); SODIUM 135 mmol/L (136-145); TOTAL PROTEIN 7.3 gm/dL (6.4-8.2)
[2017-06-01 15:16] LABS: TROPONIN I < 0.015 ng/ml (<0.045)
[2017-06-01 15:17] LABS: POTASSIUM 6.3 mmol/L (3.5-5.1)
[2017-06-01 17:45] VITALS: BP 103/39
[2017-06-01 18:01] LABS: ALBUMIN 1.7 gm/dl (3.1-4.5); CREATININE 3.39 mg/dL (0.70-1.30); TOTAL PROTEIN 6.3 gm/dL (6.4-8.2)
[2017-06-01 18:02] LABS: POTASSIUM 6.1 mmol/L (3.5-5.1)
== END 2017-06-01 18:25 | disposition short-term general hospital (02) ==
LOC: ED 14:10
PROVIDERS: Nurse Practitioner Family
DX: R41.0 Disorientation, unspecified (principal); E87.5 Hyperkalemia; J44.9 Chronic obstructive pulmonary disease, unspecified; I10 Essential (primary) hypertension; M10.9 Gout, unspecified; E11.9 Type 2 diabetes mellitus without complications; Z86.718 Personal history of other venous thrombosis and embolism; F17.200 Nicotine dependence, unspecified, uncomplicated